=== PATIENT | female | born 1970 | race Caucasian/White ===

== ENCOUNTER 2025-07-11 14:43 | Emergency (ER) | payer OTHER ==
[~2025-07-11] VITALS: Ht 165.1 cm; Wt 86.4 kg
[2025-07-11 14:46] VITALS: BP 161/85; PULSE 66; RESP 18; O2SAT 99
== END 2025-07-11 16:44 | disposition left against medical advice (07) ==
LOC: EMS 14:43
DX: G43.909 Migraine, unspecified, not intractable, without status migrainosus (principal); Z53.21 Procedure and treatment not carried out due to patient leaving prior to being seen by health care provider